=== PATIENT | male | born 1955 | race Two or more races ===

== ENCOUNTER → 2016-12-07 | Outpatient (CLI) | payer OTHER ==
[~2016-12-07] MED LIST: NOCURR
== END | disposition home or self-care (01) ==
LOC: RADPV 14:02
PROVIDERS: ATTEND Internal Medicine Cardiovascular Disease
DX: I50.1 Left ventricular failure, unspecified (principal); I73.9 Peripheral vascular disease, unspecified; I77.1 Stricture of artery; I74.8 Embolism and thrombosis of other arteries
CPT/HCPCS: 93306; 93925